=== PATIENT | female | born 1970 | race Caucasian/White ===

== ENCOUNTER 2018-10-09 18:17 | Emergency (ER) | payer BC ==
[~2018-10-09] VITALS: Ht 157.5 cm; Wt 81.7 kg
[~2018-10-09 18:17] MED LIST: AUGMENTIN 875875 M1 PO; IRON325 PO; MUCINEX600 MG PO; MULTI COMPLETE1 EACH PO; NO HOME MEDS; NORCO 5-325 TA1 EACH PO; NORFLEX100 MG PO; TUMS DUAL ACTI1 EACH; VISTARIL OR
[2018-10-09 19:11] LABS: URINE BILIRUBIN NEGATIVE (Negative); URINE BLOOD TRACE (Negative); URINE CLARITY CLEAR; URINE COLOR YELLOW; URINE GLUCOSE-RANDOM* NEGATIVE (Negative); URINE KETONES NEGATIVE (Negative); URINE LEUKOCYTES-REFLEX NEGATIVE (Negative); URINE NITRITE-REFLEX NEGATIVE (Negative); URINE PROTEIN (DIPSTICK) NEGATIVE (Negative); URINE SPECIFIC GRAVITY 1.015 (1.005-1.035); URINE UROBILINOGEN 0.2 E.U./dl (0.2-1.0)
[2018-10-09 20:20] LABS: BASOPHILS 0.9 % (0.0-2.0); EOSINOPHILS 1.8 % (0.0-3.0); HEMATOCRIT 44.3 % (37.0-47.0); HEMOGLOBIN 15.7 gm/dL (12.0-15.0); LYMPHOCYTES 38.8 % (24.0-44.0); MCH 31.7 pg (26.0-34.0); MCHC 35.4 g/dL (28.0-37.0); MCV 89.4 fL (80.0-100.0); MONOCYTES 4.8 % (1.0-8.0); PLATELET COUNT 301 thou/uL (150-400); POLYS 53.7 % (36.0-66.0); RBC 4.96 mil/uL (4.20-5.00); RDW 12.6 % (10.5-14.5)
[2018-10-09 20:29] LABS: CALCIUM 9.3 mg/dL (8.5-10.1); CREATININE 0.8 mg/dL (0.6-1.0); POTASSIUM 3.6 mmol/L (3.5-5.1)
[2018-10-09] MEDS ORDERED: NAPROSYN500 MG PO (20:32)
[2018-10-09] MEDS ORDERED: NORFLEX100 MG PO (20:32)
[2018-10-09 20:35] LABS: ALBUMIN 3.9 g/dL (3.4-5.0); TOTAL BILIRUBIN 0.2 mg/dL (<0.1-1.0); TOTAL PROTEIN 7.9 g/dL (6.4-8.2)
[2018-10-09 21:21] VITALS: BP 107/58
== END 2018-10-09 21:22 | disposition home or self-care (01) ==
LOC: ER 18:17
PROVIDERS: Emergency Medicine
DX: R10.11 Right upper quadrant pain (principal); M54.5 Low back pain; F17.210 Nicotine dependence, cigarettes, uncomplicated; Z88.1 Allergy status to other antibiotic agents; Z88.5 Allergy status to narcotic agent; Z98.890 Other specified postprocedural states; Z90.49 Acquired absence of other specified parts of digestive tract

== ENCOUNTER 2018-12-21 21:39 | Emergency (ER) | payer BC ==
[~2018-12-21] VITALS: Ht 157.5 cm; Wt 81.7 kg
[~2018-12-21 21:39] MED LIST changes: +NAPROSYN500 MG PO
[2018-12-21 21:46] VITALS: BP 144/81
[2018-12-21 21:52] LABS: URINE BILIRUBIN NEGATIVE (Negative); URINE BLOOD TRACE (Negative); URINE CLARITY CLEAR; URINE COLOR YELLOW; URINE GLUCOSE-RANDOM* NEGATIVE (Negative); URINE KETONES NEGATIVE (Negative); URINE LEUKOCYTES-REFLEX NEGATIVE (Negative); URINE NITRITE-REFLEX NEGATIVE (Negative); URINE PROTEIN (DIPSTICK) NEGATIVE (Negative); URINE UROBILINOGEN 0.2 E.U./dl (0.2-1.0)
[2018-12-22] MEDS ORDERED: MOBIC15 MG PO (00:02)
== END 2018-12-22 00:23 | disposition home or self-care (01) ==
LOC: ER 21:39
PROVIDERS: Physician Assistant
DX: A59.9 Trichomoniasis, unspecified (principal); F17.210 Nicotine dependence, cigarettes, uncomplicated; Z88.1 Allergy status to other antibiotic agents; Z88.5 Allergy status to narcotic agent; Z90.49 Acquired absence of other specified parts of digestive tract; Z98.890 Other specified postprocedural states